=== PATIENT | male | born 1960 | race Two or more races ===

== ENCOUNTER 2024-04-30 06:40 | Day surgery (SDC) | payer OTHER ==
[2024-04-25 08:26] VITALS: BP 133/77
[2024-04-25 08:50] LABS: PH,URINE 5.5 (5.0-8.0); URINE APPEARANCE Clear; URINE BILIRRUBIN Negative (NEGATIVE); URINE BLOOD Small; URINE COLOR Yellow; URINE KETONE Negative (NEGATIVE); URINE LEUKOCYTE Negative; URINE NITRATE Negative; URINE PROTEIN Negative (NEGATIVE); URINE UROBILINOGEN 0.2 E.U./dl
[2024-04-25 08:51] LABS: URINE BACTERIA 37.9 uL (0.0-1933); URINE EPITHELIAL CELLS 7.1 uL (0.0-38.8); URINE RBC 46.5 uL (0.0-20.8); URINE WBC 6.8 uL (0.0-23.2)
[2024-04-25 08:52] LABS: HEMATOCRIT 37.4 % (39.0-48.0); HEMOGLOBIN 12.9 g/dL (13-16.00); MEAN CELL VOLUME 84.3 fL (80.0-100.00); MEAN CORPUSCULAR HEMOGLOBIN 29.1 pg (27.00-32.0); MEAN CORPUSCULAR HGB CONC 34.5 g/dl (32.0-36.0); PLATELET COUNT 289 K/uL (150-450); RED BLOOD COUNT 4.44 M/uL (4.00-6.00); RED CELL DISTRIBUTION WIDTH 14.1 % (11.5-14.5)
[2024-04-25 09:16] LABS: INR 1.09; PARTIAL THROMBOPLASTIN TIME 30.7 SECONDS (22.0-34.0); PROTHROMBIN TIME 11.8 SECONDS (9.0-11.5)
[2024-04-25 09:25] LABS: URINE CAST 0.14 uL (0.0-1.40); URINE GLUCOSE >=1000 MG/DL (NEGATIVE)
[2024-04-25 10:12] LABS: ALBUMIN 3.5 gm/dL (3.4-5.0); BILIRUBIN TOTAL 0.5 mg/dL (0.3-1.2); CALCIUM 9.8 mg/dL (8.5-10.1); CREATININE SERUM 1.09 mg/dL (0.70-1.30); GFR 67.68; GLOBULINA 4.1 G/DL (2.4-3.5); TOTAL PROTEIN 7.6 gm/dL (6.4-8.2)
[2024-04-25 10:25] LABS: POTASSIUM 5.53 mEq/L (3.5-5.1)
[~2024-04-30] VITALS: Ht 180.3 cm; Wt 70.3 kg
[~2024-04-30 06:40] MED LIST: AVAPRO300 MG PO; ECOTRIN81 MG; JANUMET 50-1,01 EACH PO; LIPITOR40 M1 PO; XARELTO10 MG
[2024-04-30] MEDS ORDERED: CEFAZOLIN SODIUM 1,000 MG VIAL ONE (14:01)
== END 2024-04-30 22:15 | disposition home or self-care (01) ==
LOC: CIR.AMB 06:40
PROVIDERS: ATTEND Surgery
DX: E11.52 Type 2 diabetes mellitus with diabetic peripheral angiopathy with gangrene (principal); M87.078 Idiopathic aseptic necrosis of left toe(s); I10 Essential (primary) hypertension; E78.5 Hyperlipidemia, unspecified

== ENCOUNTER 2024-05-21 19:48 | Inpatient (IN) | payer OTHER ==
[~2024-05-21] VITALS: Ht 180.3 cm; Wt 70.8 kg
--- NOTE | 2024-05-21 19:54 | NUR ---
SE RECIBE PACIENTE EN AMBULANCIA ALERTA Y ORIENTADO EN EARL JAY JAY EFERAS; EL MISMO ES UN [facility]SFER [facility]. INDICA QUE FUE OPERADO POR COLTON COL[place] Y PRESENTA COMPLICACION EN EL AREA DE LA CIRUGIA ([facility]). SE OBSERVA CANALIZACION PREVIA EN [facility]. SE MONITOREAN VS Y SE UBICA.
[2024-05-21] MEDS ORDERED: FAMOtidine 10 MG/ML (4ML VIAL) IV ONE (20:00)
[2024-05-21] MEDS ORDERED: KETOROLAC TROMETHAMINE 30 MG VIAL IU ONE (20:00)
[2024-05-21] MEDS ORDERED: VANCOMYCIN HCL 1,000 MG VIAL IV ONE (20:00)
[2024-05-21] MEDS ORDERED: KETOROLAC TROMETHAMINE 30 MG VIAL ONE (20:08)
[2024-05-21] MEDS ORDERED: VANCOMYCIN HCL 1,000 MG VIAL ONE (20:09)
[2024-05-21] MEDS ORDERED: FAMOTIDINE/PF 20 MG/2 ML VIAL ONE (20:09)
[2024-05-21] MEDS ORDERED: 0.9 % SODIUM CHLORIDE 1,000 ML IV SCH (20:30)
[2024-05-21] MEDS ORDERED: ACETAMINOPHEN 500 MG GEL..CAP PO PRN (20:30)
[2024-05-21] MEDS ORDERED: ENOXAPARIN SODIUM 40 MG/0.4 ML SYRINGE SUBCUTANEO SCH (20:30)
[2024-05-21] MEDS ORDERED: PIPERACILLIN/TAZOBACTAM SODIUM 3.375 GM in DEXTROSE 5 % IN WATER 100 ML IV SCH (20:30)
[2024-05-21] MEDS ORDERED: IRBESARTAN 300 MG TABLET PO SCH (20:31)
[2024-05-21] MEDS ORDERED: MORPHINE SULFATE 4 MG/ML CARTRIDGE IV ONE (20:45)
[2024-05-21 20:59] LABS: HEMATOCRIT 32.5 % (39.0-48.0); HEMOGLOBIN 10.7 g/dL (13-16.00); MEAN CELL VOLUME 83.8 fL (80.0-100.00); MEAN CORPUSCULAR HEMOGLOBIN 27.7 pg (27.00-32.0); PLATELET COUNT 381 K/uL (150-450); RED BLOOD COUNT 3.88 M/uL (4.00-6.00); RED CELL DISTRIBUTION WIDTH 13.2 % (11.5-14.5)
[2024-05-21 21:11] LABS: INR 1.21; PARTIAL THROMBOPLASTIN TIME 33.1 SECONDS (22.0-34.0)
[2024-05-21 21:20] LABS: BILIRUBIN TOTAL 0.45 mg/dL (0.3-1.2); CALCIUM 9.2 mg/dL (8.5-10.1); GFR 74.76; GLOBULINA 5.3 G/DL (2.4-3.5); POTASSIUM 4.85 mEq/L (3.5-5.1); TOTAL PROTEIN 8.3 gm/dL (6.4-8.2)
[2024-05-22] MEDS ORDERED: FAMOTIDINE/PF 20 MG/2 ML VIAL ONE (00:52)
[2024-05-22] MEDS ORDERED: ENOXAPARIN SODIUM 40 MG/0.4 ML SYRINGE SUBCUTANEO ONE (00:52)
[2024-05-22] MEDS ORDERED: PIPERACILLIN/TAZOBACTAM SODIUM 3.375 GM VIAL IV ONE ×2 (00:52→05:03)
[2024-05-22 01:27] VITALS: BP 158/73; O2SAT 100
[2024-05-22 08:00] VITALS: BP 170/80; O2SAT 99
[2024-05-22] MEDS ORDERED: FAMOTIDINE/PF 20 MG in 0.9 % SODIUM CHLORIDE 8 ML IV PUSH SCH (09:00)
[2024-05-22] MEDS ORDERED: ATORVASTATIN CALCIUM 40 MG TABLET PO SCH (09:00)
[2024-05-22 10:32] LABS: URINE APPEARANCE Clear; URINE BILIRRUBIN Negative (NEGATIVE); URINE BLOOD Negative; URINE COLOR Yellow; URINE GLUCOSE Negative (NEGATIVE); URINE KETONE Negative (NEGATIVE); URINE LEUKOCYTE Negative; URINE NITRATE Negative; URINE PROTEIN Trace (NEGATIVE); URINE UROBILINOGEN 0.2 E.U./dl
[2024-05-22 10:37] LABS: URINE BACTERIA 6.1 uL (0.0-1933); URINE EPITHELIAL CELLS 1.7 uL (0.0-38.8); URINE RBC 3.5 uL (0.0-20.8)
[2024-05-22 10:42] LABS: URINE WBC 1.4 uL (0.0-23.2)
[2024-05-22 18:28] VITALS: BP 160/66; O2SAT 97
[2024-05-23 01:16] VITALS: BP 161/72
[2024-05-23 08:07] VITALS: BP 154/76
[2024-05-23] MEDS ORDERED: SODIUM HYPOCHLORITE 1OZ TOP SCH (09:00)
[2024-05-23] MEDS ORDERED: DEXTROSE 50 % IN WATER 0.5 G/ML DISP.SYRIN IV PRN (11:15)
[2024-05-23] MEDS ORDERED: INSULIN LISPRO 1,000 UNIT/10 ML UNITS SUBCUTANEO PRN (11:15)
[2024-05-23] MEDS ORDERED: KETOROLAC TROMETHAMINE 30 MG VIAL IV PRN (13:15)
[2024-05-23] MEDS ORDERED: LINEZOLID IN DEXTROSE 5% 600 MG/300 ML PIGGYBAG IV STA (15:17)
[2024-05-23] MEDS ORDERED: CHLORHEXIDINE GLUCONATE 120 ML BOTTLE TOP SCH (15:18)
[2024-05-23] MEDS ORDERED: LACTOBACILLUS ACIDOPHILUS 1 CAP CAP PO SCH (17:00)
[2024-05-23 18:20] VITALS: BP 160/85; O2SAT 100
[2024-05-23] MEDS ORDERED: LINEZOLID IN DEXTROSE 5% 600 MG/300 ML PIGGYBAG IV SCH (21:00)
[2024-05-24 01:48] VITALS: BP 162/69; O2SAT 96
[2024-05-24 08:09] VITALS: BP 164/82
[2024-05-24] MEDS ORDERED: AMLODIPINE BESYLATE 5 MG TABLET PO NR (11:00)
[2024-05-24 17:15] VITALS: BP 161/91; O2SAT 96
[2024-05-25 01:35] VITALS: BP 167/90
[2024-05-25 08:55] VITALS: BP 161/89
[2024-05-25] MEDS ORDERED: AMLODIPINE BESYLATE 5 MG TABLET PO SCH (09:00)
[2024-05-25] MEDS ORDERED: CEFEPIME HCL 2,000 MG VIAL IV STA (15:20)
[2024-05-25] MEDS ORDERED: METRONIDAZOLE/SODIUM CHLORIDE 500 MG/100 ML PIGGYBACK IV STA (15:21)
[2024-05-25 16:57] VITALS: BP 165/74; O2SAT 98
[2024-05-26] MEDS ORDERED: CEFEPIME HCL 2,000 MG VIAL IV SCH (01:00)
[2024-05-26] MEDS ORDERED: METRONIDAZOLE/SODIUM CHLORIDE 500 MG/100 ML PIGGYBACK IV SCH (01:00)
[2024-05-26 02:43] VITALS: BP 146/76
[2024-05-26 09:32] VITALS: BP 156/81
[2024-05-26 12:01] LABS: HEMATOCRIT 31.2 % (39.0-48.0); HEMOGLOBIN 10.6 g/dL (13-16.00); MEAN CELL VOLUME 82.3 fL (80.0-100.00); MEAN CORPUSCULAR HGB CONC 34.1 g/dl (32.0-36.0); PLATELET COUNT 355 K/uL (150-450); RED BLOOD COUNT 3.79 M/uL (4.00-6.00); RED CELL DISTRIBUTION WIDTH 13.1 % (11.5-14.5)
[2024-05-26 12:56] LABS: ALBUMIN 2.7 gm/dL (3.4-5.0); BILIRUBIN TOTAL 0.31 mg/dL (0.3-1.2); CALCIUM 9.5 mg/dL (8.5-10.1); CREATININE SERUM 0.92 mg/dL (0.70-1.30); GFR 82.31; GLOBULINA 4.6 G/DL (2.4-3.5); POTASSIUM 4.82 mEq/L (3.5-5.1); TOTAL PROTEIN 7.3 gm/dL (6.4-8.2)
[2024-05-26 17:53] VITALS: BP 150/76; O2SAT 99
[2024-05-27 00:54] VITALS: BP 150/83; O2SAT 100
[2024-05-27 08:48] VITALS: BP 149/80
[2024-05-27 14:26] LABS: PLATELET COUNT 333 K/uL (150-450); RED BLOOD COUNT 3.73 M/uL (4.00-6.00); RED CELL DISTRIBUTION WIDTH 13.1 % (11.5-14.5)
[2024-05-27 14:28] LABS: HEMOGLOBIN 10.5 g/dL (13-16.00); MEAN CORPUSCULAR HEMOGLOBIN 28.1 pg (27.00-32.0)
[2024-05-27 14:45] LABS: ERYTHROCYTE SEDIMENTATION RATE 48 mm/hr
[2024-05-27 15:13] LABS: ALBUMIN 2.7 gm/dL (3.4-5.0); BILIRUBIN TOTAL 0.26 mg/dL (0.3-1.2); GFR 74.76; GLOBULINA 4.7 G/DL (2.4-3.5); POTASSIUM 4.77 mEq/L (3.5-5.1); TOTAL PROTEIN 7.4 gm/dL (6.4-8.2)
[2024-05-27 15:44] LABS: C-REACTIVE PROTEIN 6.03 MG/DL (0.00-0.29)
[2024-05-27 16:33] VITALS: BP 153/79; O2SAT 99
[2024-05-28 01:22] VITALS: BP 150/76
[2024-05-28 09:28] VITALS: BP 156/80; O2SAT 98
[2024-05-28] MEDS ORDERED: METROnidazole 500 MG TABLET PO SCH (17:00)
[2024-05-28 18:01] VITALS: BP 149/78; O2SAT 99
[2024-05-28] MEDS ORDERED: LINEZOLID 600 MG TABLET PO SCH (21:00)
[2024-05-29] MEDS ORDERED: TRAMADOL HCL 50 MG TABLET PO SCH
[2024-05-29 02:01] VITALS: BP 149/70
[2024-05-29 08:00] VITALS: BP 153/80
[2024-05-29 13:43] LABS: HEMATOCRIT 32.4 % (39.0-48.0); HEMOGLOBIN 10.6 g/dL (13-16.00); MEAN CORPUSCULAR HEMOGLOBIN 27.2 pg (27.00-32.0); MEAN CORPUSCULAR HGB CONC 32.8 g/dl (32.0-36.0); PLATELET COUNT 371 K/uL (150-450); RED CELL DISTRIBUTION WIDTH 12.9 % (11.5-14.5)
[2024-05-29 13:51] LABS: ERYTHROCYTE SEDIMENTATION RATE 55 mm/hr
[2024-05-29 14:04] LABS: INR 1.31; PARTIAL THROMBOPLASTIN TIME 37.6 SECONDS (22.0-34.0)
[2024-05-29 14:07] LABS: ALBUMIN 2.9 gm/dL (3.4-5.0); BILIRUBIN TOTAL 0.41 mg/dL (0.3-1.2); CREATININE SERUM 0.87 mg/dL (0.70-1.30); GFR 87.79; GLOBULINA 4.6 G/DL (2.4-3.5); POTASSIUM 4.48 mEq/L (3.5-5.1); TOTAL PROTEIN 7.5 gm/dL (6.4-8.2)
[2024-05-29 15:08] LABS: C-REACTIVE PROTEIN 5.03 MG/DL (0.00-0.29)
[2024-05-29] MEDS ORDERED: BUPIVACAINE HCL 30 ML VIAL IJ ONE (16:00)
[2024-05-29] MEDS ORDERED: POVIDONE-IODINE 118 ML BOTT TOP ONE (16:00)
[2024-05-29 23:28] VITALS: BP 114/79; O2SAT 98
[2024-05-30 04:01] VITALS: BP 126/73
[2024-05-30 08:54] VITALS: BP 149/82
[2024-05-30] MEDS ORDERED: OxyCODONE HCL/APAP UD (PERCOCET) PO PRN (09:15)
[2024-05-30] MEDS ORDERED: levoFLOXacin IN DEXTROSE 5 % 5 MG/ML PIGGYBAG IV STA (16:20)
[2024-05-30 18:31] VITALS: BP 157/81; O2SAT 97
[2024-05-31 01:04] VITALS: BP 130/70; O2SAT 99
[2024-05-31 07:43] LABS: HEMATOCRIT 30.4 % (39.0-48.0); HEMOGLOBIN 10.2 g/dL (13-16.00); MEAN CELL VOLUME 82.5 fL (80.0-100.00); MEAN CORPUSCULAR HEMOGLOBIN 27.7 pg (27.00-32.0); MEAN CORPUSCULAR HGB CONC 33.6 g/dl (32.0-36.0); PLATELET COUNT 335 K/uL (150-450); RED BLOOD COUNT 3.68 M/uL (4.00-6.00); RED CELL DISTRIBUTION WIDTH 12.9 % (11.5-14.5)
[2024-05-31 08:04] VITALS: BP 128/81
[2024-05-31 08:06] LABS: ALBUMIN 2.6 gm/dL (3.4-5.0); BILIRUBIN TOTAL 0.4 mg/dL (0.3-1.2); CALCIUM 8.7 mg/dL (8.5-10.1); CREATININE SERUM 0.88 mg/dL (0.70-1.30); GFR 86.64; GLOBULINA 4.5 G/DL (2.4-3.5); POTASSIUM 5.14 mEq/L (3.5-5.1); TOTAL PROTEIN 7.1 gm/dL (6.4-8.2)
[2024-05-31] MEDS ORDERED: levoFLOXacin IN DEXTROSE 5 % 150 ML IV SCH (09:00)
[2024-05-31] MEDS ORDERED: (FF) Daptomycin 50 MG/ML IV SCH (17:00)
[2024-05-31 17:50] VITALS: BP 123/73; O2SAT 97
[2024-06-01 01:14] VITALS: BP 128/72; O2SAT 99
[2024-06-01 07:52] LABS: ALBUMIN 2.5 gm/dL (3.4-5.0); BILIRUBIN TOTAL 0.34 mg/dL (0.3-1.2); CALCIUM 8.9 mg/dL (8.5-10.1); GFR 74.76; GLOBULINA 4.6 G/DL (2.4-3.5); POTASSIUM 5.02 mEq/L (3.5-5.1); TOTAL PROTEIN 7.1 gm/dL (6.4-8.2)
[2024-06-01 09:08] VITALS: BP 147/78
[2024-06-01 17:18] VITALS: BP 138/77; O2SAT 100
[2024-06-02 00:23] VITALS: BP 156/79; O2SAT 99
[2024-06-02 07:03] LABS: HEMATOCRIT 29.9 % (39.0-48.0); HEMOGLOBIN 10.2 g/dL (13-16.00); MEAN CELL VOLUME 81.8 fL (80.0-100.00); MEAN CORPUSCULAR HEMOGLOBIN 28.1 pg (27.00-32.0); MEAN CORPUSCULAR HGB CONC 34.3 g/dl (32.0-36.0); PLATELET COUNT 366 K/uL (150-450); RED BLOOD COUNT 3.65 M/uL (4.00-6.00); RED CELL DISTRIBUTION WIDTH 13.2 % (11.5-14.5)
[2024-06-02 07:37] LABS: ALBUMIN 2.7 gm/dL (3.4-5.0); BILIRUBIN TOTAL 0.34 mg/dL (0.3-1.2); CALCIUM 9.4 mg/dL (8.5-10.1); CREATININE SERUM 1.02 mg/dL (0.70-1.30); GFR 73.07; GLOBULINA 4.6 G/DL (2.4-3.5); POTASSIUM 5.09 mEq/L (3.5-5.1); TOTAL PROTEIN 7.3 gm/dL (6.4-8.2)
[2024-06-02 08:09] VITALS: BP 134/69
[2024-06-02 16:14] VITALS: BP 131/76
[2024-06-03 01:18] VITALS: BP 147/81; O2SAT 99
[2024-06-03 07:50] VITALS: BP 151/75; O2SAT 98
[2024-06-03] MEDS ORDERED: levoFLOXacin 750 MG TABLET PO SCH (09:00)
[2024-06-03] MEDS ORDERED: (FF) Daptomycin 50 MG/ML IV SCH (17:00)
[2024-06-03 17:26] VITALS: BP 111/69; O2SAT 99
[2024-06-04 02:12] VITALS: BP 131/73; O2SAT 100
[2024-06-04 06:09] LABS: HEMATOCRIT 29.2 % (39.0-48.0); MEAN CELL VOLUME 82.5 fL (80.0-100.00); MEAN CORPUSCULAR HEMOGLOBIN 28.2 pg (27.00-32.0); MEAN CORPUSCULAR HGB CONC 34.2 g/dl (32.0-36.0); PLATELET COUNT 371 K/uL (150-450); RED BLOOD COUNT 3.53 M/uL (4.00-6.00); RED CELL DISTRIBUTION WIDTH 13.3 % (11.5-14.5)
[2024-06-04 06:39] LABS: ALBUMIN 2.6 gm/dL (3.4-5.0); BILIRUBIN TOTAL 0.25 mg/dL (0.3-1.2); CREATININE SERUM 1.03 mg/dL (0.70-1.30); GFR 72.25; GLOBULINA 4.4 G/DL (2.4-3.5); POTASSIUM 4.85 mEq/L (3.5-5.1)
[2024-06-04 09:45] VITALS: BP 137/72; O2SAT 99
[2024-06-04] MEDS ORDERED: MORPHINE SULFATE 4 MG/ML VIAL IV ONE (17:50)
[2024-06-04] MEDS ORDERED: OxyCODONE HCL/APAP UD (PERCOCET) PO PRN (21:15)
[2024-06-04 22:35] VITALS: BP 128/81
[2024-06-05 01:33] VITALS: BP 158/79; O2SAT 100
[2024-06-05 07:34] LABS: HEMATOCRIT 29.4 % (39.0-48.0); MEAN CELL VOLUME 82.1 fL (80.0-100.00); MEAN CORPUSCULAR HEMOGLOBIN 27.9 pg (27.00-32.0); PLATELET COUNT 379 K/uL (150-450); RED BLOOD COUNT 3.58 M/uL (4.00-6.00); RED CELL DISTRIBUTION WIDTH 13.4 % (11.5-14.5)
[2024-06-05 08:00] LABS: ALBUMIN 2.6 gm/dL (3.4-5.0); BILIRUBIN TOTAL 0.32 mg/dL (0.3-1.2); CALCIUM 8.8 mg/dL (8.5-10.1); CREATININE SERUM 0.99 mg/dL (0.70-1.30); GFR 75.63; GLOBULINA 4.2 G/DL (2.4-3.5); POTASSIUM 4.69 mEq/L (3.5-5.1); TOTAL PROTEIN 6.8 gm/dL (6.4-8.2)
[2024-06-05 08:04] VITALS: BP 150/79
[2024-06-05 17:10] VITALS: BP 156/90
[2024-06-05] MEDS ORDERED: POLYETHYLENE GLYCOL 3350 17 GM BLIST.PACK PO SCH (21:00)
[2024-06-06 01:48] VITALS: BP 156/78; O2SAT 100
[2024-06-06 07:52] VITALS: BP 134/82
[2024-06-06 17:16] VITALS: BP 121/72; O2SAT 99
[2024-06-07] MEDS ORDERED: OxyCODONE HCL/APAP UD (PERCOCET) PO PRN (00:30)
[2024-06-07 01:56] VITALS: BP 134/74; O2SAT 99
[2024-06-07 09:45] VITALS: BP 135/80; O2SAT 98
[2024-06-07 18:04] VITALS: BP 138/83
[2024-06-08 02:06] VITALS: BP 147/80; O2SAT 97
[2024-06-08 08:14] LABS: HEMATOCRIT 29.2 % (39.0-48.0); HEMOGLOBIN 10.1 g/dL (13-16.00); MEAN CELL VOLUME 83.1 fL (80.0-100.00); MEAN CORPUSCULAR HEMOGLOBIN 28.7 pg (27.00-32.0); MEAN CORPUSCULAR HGB CONC 34.5 g/dl (32.0-36.0); PLATELET COUNT 339 K/uL (150-450); RED BLOOD COUNT 3.51 M/uL (4.00-6.00); RED CELL DISTRIBUTION WIDTH 13.5 % (11.5-14.5)
[2024-06-08 09:48] VITALS: BP 130/75; O2SAT 99
[2024-06-08 19:53] VITALS: BP 122/68; O2SAT 98
[2024-06-09 01:30] VITALS: BP 148/83
[2024-06-09 09:08] VITALS: BP 138/84
[2024-06-09 17:22] VITALS: BP 150/80; O2SAT 98
[2024-06-10] MEDS ORDERED: OxyCODONE HCL/APAP UD (PERCOCET) PO PRN (00:30)
[2024-06-10 01:23] VITALS: BP 131/73
[2024-06-10 08:20] VITALS: BP 111/73; O2SAT 95
[2024-06-10] MEDS ORDERED: SULFAMETHOXAZOLE/TRIMETHOPRIM 16 MG/ML 10ML VIAL IV STA (10:05)
[2024-06-10] MEDS ORDERED: SULFAMETHOXAZOLE/TRIMETHOPRIM 16 MG/ML VIAL IV SCH ×2 (17:00→21:00)
[2024-06-10 17:46] VITALS: BP 129/75; O2SAT 100
[2024-06-11 01:08] VITALS: BP 116/74
[2024-06-11 08:21] VITALS: BP 115/72
[2024-06-11] MEDS ORDERED: COLLAGENASE CLOSTRIDIUM HIST. 30 GM TUBE TOP SCH (09:00)
[2024-06-11] MEDS ORDERED: SULFAMETHOXAZOLE/TRIMETHOPRIM 16 MG/ML 10ML VIAL IV SCH (13:00)
[2024-06-11 16:59] VITALS: BP 127/74; O2SAT 100
[2024-06-12 00:30] VITALS: BP 139/69
[2024-06-12 08:34] VITALS: BP 126/74; O2SAT 99
[2024-06-12] MEDS ORDERED: CEFIDEROCOL IV SCH (12:57)
[2024-06-12 16:54] VITALS: BP 133/84; O2SAT 99
[2024-06-12] MEDS ORDERED: CEFTAZIDIME/AVIBACTAM 2.5 GM VIAL IV SCH (17:00)
[2024-06-12] MEDS ORDERED: AZTREONAM 2,000 MG VIAL IV SCH ×2 (17:00)
[2024-06-13 01:02] VITALS: BP 120/74
[2024-06-13 05:27] LABS: HEMATOCRIT 30.5 % (39.0-48.0); HEMOGLOBIN 10.1 g/dL (13-16.00); MEAN CORPUSCULAR HEMOGLOBIN 27.9 pg (27.00-32.0); MEAN CORPUSCULAR HGB CONC 33.3 g/dl (32.0-36.0); PLATELET COUNT 349 K/uL (150-450); RED BLOOD COUNT 3.63 M/uL (4.00-6.00)
[2024-06-13 06:23] LABS: CALCIUM 8.9 mg/dL (8.5-10.1); CREATININE SERUM 1.17 mg/dL (0.70-1.30); GFR 62.37; POTASSIUM 4.89 mEq/L (3.5-5.1)
[2024-06-13 06:24] LABS: C-REACTIVE PROTEIN 0.65 MG/DL (0.00-0.29)
[2024-06-13 07:52] VITALS: BP 134/75; O2SAT 100
[2024-06-13 17:40] VITALS: BP 118/79
[2024-06-14 02:21] VITALS: BP 146/81; O2SAT 99
[2024-06-14 08:43] VITALS: BP 130/79; O2SAT 96
[2024-06-14 17:44] VITALS: BP 137/80
[2024-06-15 02:00] VITALS: BP 132/78; O2SAT 99
[2024-06-15 08:46] VITALS: BP 146/92; O2SAT 99
[2024-06-15 18:22] VITALS: BP 123/70
[2024-06-16 01:29] VITALS: BP 131/81; O2SAT 99
[2024-06-16 09:19] VITALS: BP 115/72; O2SAT 99
[2024-06-16 18:46] VITALS: BP 144/75
[2024-06-17 02:15] VITALS: BP 116/66; O2SAT 99
[2024-06-17 07:28] LABS: HEMATOCRIT 29.7 % (39.0-48.0); HEMOGLOBIN 9.9 g/dL (13-16.00); MEAN CELL VOLUME 84.4 fL (80.0-100.00); MEAN CORPUSCULAR HEMOGLOBIN 28.1 pg (27.00-32.0); MEAN CORPUSCULAR HGB CONC 33.2 g/dl (32.0-36.0); PLATELET COUNT 339 K/uL (150-450); RED BLOOD COUNT 3.52 M/uL (4.00-6.00); RED CELL DISTRIBUTION WIDTH 14.7 % (11.5-14.5)
[2024-06-17] MEDS ORDERED: TRAMADOL HCL 50 MG TABLET PO PRN (07:30)
[2024-06-17 08:05] LABS: ALBUMIN 2.4 gm/dL (3.4-5.0); BILIRUBIN TOTAL 0.19 mg/dL (0.3-1.2); CALCIUM 9.3 mg/dL (8.5-10.1); CREATININE SERUM 0.86 mg/dL (0.70-1.30); GFR 88.97; GLOBULINA 4.1 G/DL (2.4-3.5); POTASSIUM 4.71 mEq/L (3.5-5.1); TOTAL PROTEIN 6.5 gm/dL (6.4-8.2)
[2024-06-17 08:41] VITALS: BP 119/75; O2SAT 98
[2024-06-17 17:00] VITALS: BP 117/68; O2SAT 100
[2024-06-17] MEDS ORDERED: AZTREONAM 2,000 MG VIAL IV SCH (21:00)
[2024-06-17] MEDS ORDERED: CEFTAZIDIME/AVIBACTAM 2.5 GM VIAL IV SCH (21:00)
[2024-06-18 01:41] VITALS: BP 138/77; O2SAT 98
[2024-06-18 08:32] VITALS: BP 116/73
[2024-06-18 18:22] VITALS: BP 121/70
[2024-06-19 04:43] VITALS: BP 162/76
[2024-06-19 09:26] VITALS: BP 124/78; O2SAT 97
[2024-06-19 18:25] VITALS: BP 123/74; O2SAT 97
[2024-06-20 01:09] VITALS: BP 139/81
[2024-06-20 10:56] VITALS: BP 125/76; O2SAT 97
[2024-06-20 16:59] VITALS: BP 134/77
[2024-06-21 02:58] VITALS: BP 157/72; O2SAT 98
[2024-06-21 13:07] VITALS: BP 146/84
[2024-06-21 16:51] VITALS: BP 118/72
[2024-06-22 02:02] VITALS: BP 139/82; O2SAT 99
[2024-06-22 08:00] VITALS: BP 141/99; O2SAT 99
[2024-06-22] MEDS ORDERED: AZTREONAM 1,000 MG VIAL IV SCH (17:00)
[2024-06-22] MEDS ORDERED: (FF) Daptomycin 50 MG/ML IV SCH (17:00)
[2024-06-22 17:17] VITALS: BP 107/71
[2024-06-22] MEDS ORDERED: CEFTAZIDIME/AVIBACTAM 2.5 GM VIAL IV SCH (21:00)
[2024-06-23 00:57] VITALS: BP 150/78
[2024-06-23 06:53] LABS: HEMATOCRIT 34.6 % (39.0-48.0); HEMOGLOBIN 11.6 g/dL (13-16.00); MEAN CELL VOLUME 86.4 fL (80.0-100.00); MEAN CORPUSCULAR HGB CONC 33.5 g/dl (32.0-36.0); PLATELET COUNT 315 K/uL (150-450); RED BLOOD COUNT 4.01 M/uL (4.00-6.00); RED CELL DISTRIBUTION WIDTH 16.6 % (11.5-14.5)
[2024-06-23 06:57] LABS: CALCIUM 9.8 mg/dL (8.5-10.1); CREATININE SERUM 0.99 mg/dL (0.70-1.30); GFR 75.63; POTASSIUM 5.42 mEq/L (3.5-5.1)
[2024-06-23 09:49] VITALS: BP 120/76; O2SAT 97
[2024-06-23 16:40] VITALS: BP 150/80
[2024-06-23] MEDS ORDERED: SULFAMETHOXAZOLE/TRIMETHOPRIM 16 MG/ML VIAL IV SCH (17:00)
[2024-06-24 02:39] VITALS: BP 155/78; O2SAT 98
[2024-06-24 08:25] VITALS: BP 117/75; O2SAT 97
[2024-06-24 17:03] VITALS: BP 113/70; O2SAT 100
[2024-06-25 02:16] VITALS: BP 125/74; O2SAT 97
[2024-06-25 07:56] VITALS: BP 118/70; O2SAT 97
[2024-06-25] MEDS ORDERED: SULFAMETHOXAZOLE/TRIMETHOPRIM 16 MG/ML 10ML VIAL IV SCH (09:00)
[2024-06-25 17:11] VITALS: BP 145/76; O2SAT 98
[2024-06-26 02:35] VITALS: BP 108/70; O2SAT 96
[2024-06-26 07:15] LABS: HEMATOCRIT 31.1 % (39.0-48.0); HEMOGLOBIN 10.4 g/dL (13-16.00); MEAN CELL VOLUME 86.4 fL (80.0-100.00); MEAN CORPUSCULAR HEMOGLOBIN 28.8 pg (27.00-32.0); MEAN CORPUSCULAR HGB CONC 33.3 g/dl (32.0-36.0); PLATELET COUNT 229 K/uL (150-450); RED CELL DISTRIBUTION WIDTH 17.2 % (11.5-14.5)
[2024-06-26 07:55] LABS: ALBUMIN 2.4 gm/dL (3.4-5.0); BILIRUBIN TOTAL 0.19 mg/dL (0.3-1.2); CREATININE SERUM 1.19 mg/dL (0.70-1.30); GFR 61.16; GLOBULINA 3.9 G/DL (2.4-3.5); POTASSIUM 4.83 mEq/L (3.5-5.1); TOTAL PROTEIN 6.3 gm/dL (6.4-8.2)
[2024-06-26 08:01] VITALS: BP 159/78; O2SAT 98
[2024-06-26 17:19] VITALS: BP 130/77; O2SAT 100
[2024-06-27] VITALS: BP 101/62; O2SAT 100
[2024-06-27 10:25] VITALS: BP 139/78; O2SAT 99
[2024-06-27 17:12] VITALS: BP 100/64
[2024-06-28 01:48] VITALS: BP 108/71; O2SAT 97
[2024-06-28 09:56] VITALS: BP 103/68; O2SAT 100
[2024-06-28 16:48] VITALS: BP 118/71; O2SAT 100
[2024-06-29 00:06] VITALS: BP 123/72; O2SAT 98
[2024-06-29 07:57] VITALS: BP 105/67
[2024-06-29 17:01] VITALS: BP 101/58
[2024-06-30 00:18] VITALS: BP 90/54; O2SAT 99
[2024-06-30 08:18] VITALS: BP 107/68
[2024-06-30 18:11] VITALS: BP 110/73
[2024-07-01 01:52] VITALS: BP 113/73; O2SAT 98
[2024-07-01 09:03] VITALS: BP 114/72; O2SAT 98
[2024-07-01 16:23] VITALS: BP 186/63; O2SAT 97
[2024-07-02 02:20] VITALS: BP 110/71; O2SAT 97
[2024-07-02 07:56] VITALS: BP 112/67
== END 2024-07-02 11:07 | disposition home or self-care (01) | DRG 617 ==
LOC: ER 19:48 → MEDJ 21:21 → SEC-K 22:00 → MEDJ 05-22 09:28
PROVIDERS: General Practice; Internal Medicine; Internal Medicine Infectious Disease; Specialist; Student in an Organized Health Care Education/Training Program; ADMIT Internal Medicine; ATTEND Internal Medicine
PROC: B44GZZZ Ultrasonography of Left Lower Extremity Arteries (ICD-10-PCS; 2024-05-22)
PROC: BQ3MZZZ Magnetic Resonance Imaging (MRI) of Left Foot (ICD-10-PCS; 2024-05-22)
PROC: 8E0ZXY6 Isolation (ICD-10-PCS; 2024-05-23)
PROC: 05H933Z Insertion of Infusion Device into Right Brachial Vein, Percutaneous Approach (ICD-10-PCS; 2024-05-27)
PROC: 0JBR0ZZ Excision of Left Foot Subcutaneous Tissue and Fascia, Open Approach (ICD-10-PCS; 2024-06-04)
PROC: 3E10X8Z Irrigation of Skin and Mucous Membranes using Irrigating Substance (ICD-10-PCS; 2024-06-04)
PROC: 0Y6Y0Z0 Detachment at Left 5th Toe, Complete, Open Approach (ICD-10-PCS; principal; 2024-06-04 12:30)
DX: E11.621 Type 2 diabetes mellitus with foot ulcer (principal); E11.52 Type 2 diabetes mellitus with diabetic peripheral angiopathy with gangrene; I96 Gangrene, not elsewhere classified; M86.172 Other acute osteomyelitis, left ankle and foot; L03.116 Cellulitis of left lower limb; M87.078 Idiopathic aseptic necrosis of left toe(s); M86.8X7 Other osteomyelitis, ankle and foot; L97.529 Non-pressure chronic ulcer of other part of left foot with unspecified severity; Z79.4 Long term (current) use of insulin; E11.622 Type 2 diabetes mellitus with other skin ulcer; B96.89 Other specified bacterial agents as the cause of diseases classified elsewhere; B95.2 Enterococcus as the cause of diseases classified elsewhere; B95.61 Methicillin susceptible Staphylococcus aureus infection as the cause of diseases classified elsewhere; L08.9 Local infection of the skin and subcutaneous tissue, unspecified; F43.20 Adjustment disorder, unspecified; E11.69 Type 2 diabetes mellitus with other specified complication
CPT/HCPCS: 73725